=== PATIENT | female | born 1985 | race Caucasian/White ===

== ENCOUNTER 2022-03-24 08:59 | Emergency (ER) | payer OTHER, SELFPAY ==
[2022-03-24] VITALS (16 sets, daily range): BP systolic 127–135; BP diastolic 82–93; PULSE 79–97; RESP 18–20; TEMP 37.4; O2SAT 100; BMI 18.5
[2022-03-24] MEDS: 0.9 % SODIUM CHLORIDE 1000 ml 1,000 ML IV (10:00)
--- NOTE | 2022-03-24 10:29 | ED.GENADULT ---
HPI - General Adult General Chief complaint: Nausea/Vomiting Stated complaint: Pelvic/back pain/vomiting Time Seen by Provider: 03/24/22 10:22 History of Present Illness HPI narrative: This 36-year-old female states that she began to have some dysuria symptoms a couple weeks ago. She states that her urine was more concentrated. She consulted with a provider who thought that it might be related to constipation. About a week ago she had severe pain at the end of voiding. She now reports lower abdominal pain radiating into her back. She has some mild flank pain bilaterally. She feels chilled and states that she does not have a thermometer at home. She does not know if she had any fevers. She arrives here with normal vital signs. Related Data Home Medications Medication Instructions Recorded Confirmed acetaminophen 500 mg tablet 1,000 mg PO Q6H PRN 03/24/22 03/24/22 (Acetaminophen Pain Relief) Previous Rx's Medication Instructions Recorded ketorolac 10 mg tablet 10 mg PO Q8H 5 days #15 tabs 03/24/22 ondansetron 4 mg disintegrating 4 mg PO Q6H #20 tabs 03/24/22 tablet oxycodone 5 mg capsule 5 mg PO Q6H PRN pain #20 caps 03/24/22 Allergies Allergy/AdvReac Type Severity Reaction Status Date / Time No Known Drug Allergies Allergy Verified 03/24/22 12:36 Review of Systems Status of ROS: Reports: 10 or more systems reviewed and unremarkable except as noted in History and below Narrative: Constitutional: No fevers, no weight gain or loss. Eyes: No discharge. No vision changes. HENT: No congestion, no sore throat, no ear pain. Cardiovascular: No chest pain, no palpitations. Respiratory: No shortness of breath, no wheezes, no cough. Gastrointestinal: No diarrhea. Lower abdominal pain radiating through to the back. Nausea. Genitourinary: Painful urination. Musculoskeletal: Normal range of motion. Skin: No rashes, no pruritis. Neurological: No dizziness, weakness, sensory change, speech change. Endo/Heme/Allergies: No bruising or bleeding. No polydipsia. Pysch: no suicidality, no anxiety, no insomnia. All other systems reviewed and are negative. PFSH PFSH Social History Smoking Status: Former smoker Do you use any of these nicotine containing products: None Second hand tobacco smoke exposure: No How often do you have a drink containing alcohol: never AUDIT-C Alcohol total score: 0 Non-prescribed substance use: denies use Exam Narrative: Exam Narrative: Constitutional: Well-developed, well-nourished, no acute distress. HEENT: Normocephalic, atraumatic. Neck: Normal range of motion. Nontender. Supple. Heart: Regular. No murmurs. Normal rate. Intact distal pulses. Lungs: Clear to auscultation. No chest discomfort. No wheezes, rhonchi, or rales. Abdomen: Normal bowel sounds. Lower abdominal pain. No rebound tenderness. No distinct flank pain when percussing over the kidneys. Genitalia: Deferred. Back: No midline tenderness. Normal range of motion. Extremities: Normal range of motion. No injury. Skin: Intact. No rash. Warm. No erythema or pallor. Neurologic: No altered sensation. No weakness. Alert and oriented. Psychiatric: No suicidality. No anxiety or depression. No insomnia. Nursing notes and vitals signs are reviewed. Const: Vital Signs, click to edit/add: Vital Signs - 24 hr 03/24/22 09:20 03/24/22 10:44 03/24/22 09:24 Temperature 99.4 F Pulse Rate 83 Pulse Rate [Right Pulse Oximeter] 84 82 Respiratory Rate 18 20 Blood Pressure Blood Pressure [Ri ght Upper Arm] 135/87 133/91 H Pulse Oximetry 100 100 100 Oxygen Delivery Me od Room Air 03/24/22 10:45 03/24/22 10:46 03/24/22 11:00 Temperature Pulse Rate 92 84 86 Pulse Rate [Right Pulse Oximeter] Respiratory Rate Blood Pressure 133/91 H Blood Pressure [Ri ght Upper Arm] Pulse Oximetry 100 100 100 Oxygen Delivery Me thod 03/24/22 11:01 03/24/22 11:31 03/24/22 11:36 Temperature Pulse Rate 85 93 Pulse Rate [Right Pulse Oximeter] Respiratory Rate Blood Pressure 131/93 H 128/86 Blood Pressure [Ri ght Upper Arm] Pulse Oximetry 100 100 Oxygen Delivery Mn thod 03/24/22 12:00 03/24/22 12:01 03/24/22 12:41 Temperature Pulse Rate 97 90 79 Pulse Rate [Right Pulse Oximeter] Respiratory Rate Blood Pressure 134/87 Blood Pressure [Ri ght Upper Arm] Pulse Oximetry 100 100 100 Oxygen Delivery Me thod 03/24/22 13:01 03/24/22 13:02 03/24/22 13:32 Temperature Pulse Rate 79 86 Pulse Rate [Right Pulse Oximeter] Respiratory Rate Blood Pressure 135/92 H 127/82 Blood Pressure [Ri ght Upper Arm] Pulse Oximetry 100 100 Oxygen Delivery Me thod 03/24/22 13:41 Temperature Pulse Rate 86 Pulse Rate [Right Pulse Oximeter] Respiratory Rate Blood Pressure Blood Pressure [Ri ght Upper Arm] Pulse Oximetry 100 Oxygen Delivery Me thod Course Vital Signs Vital signs: Initial Vital Signs Temperature 99.4 F 03/24/22 09:20 Temperature Source Temporal Artery Scan 03/24/22 09:20 Pulse Rate 84 03/24/22 09:20 Respiratory Rate 18 03/24/22 09:20 Blood Pressure 135/87 03/24/22 09:20 Blood Pressure Mean 103 03/24/22 09:20 Blood Pressure Position Sitting 03/24/22 09:20 Pulse Oximetry 100 03/24/22 09:20 Oxygen Delivery Method 03/24/22 09:20 Vital Signs Temperature 99.4 F 03/24/22 09:20 Pulse Rate 84 03/24/22 09:20 Respiratory Rate 18 03/24/22 09:20 Blood Pressure 135/87 03/24/22 09:20 Pulse Oximetry 100 03/24/22 09:20 Oxygen Delivery Method 03/24/22 09:20 Temperature 99.4 F 03/24/22 09:20 Pulse Rate 86 03/24/22 13:41 Respiratory Rate 20 03/24/22 10:44 Blood Pressure 127/82 03/24/22 13:32 Pulse Oximetry 100 03/24/22 13:41 Oxygen Delivery Method 03/24/22 09:20 Medical Decision Making MDM Narrative Medical decision making narrative: This 36-year-old female comes in reporting severe lower abdominal pain radiating through to her back. She did have a surgery for uterine and bladder prolapse about 6 months ago. She has had a hysterectomy and her tubes were removed along with her right ovary. An IV was established where she received total of 0.5 mg of Dilaudid along with 30 mg of Toradol. This brought great relief of her pain. Her white count returns a bit elevated but urinalysis shows no sign of infection. A CT scan of the abdomen and pelvis was then completed which shows no acute findings to explain her pain. She does have a physiologic cyst in the left adnexa which may be draining and causing some pain for her. If not that as a source of pain her surgery 6 months ago may be involved however there are no concerning findings of acute abdomen on CT scan. At the time of discharge the patient appears safe for outpatient management. The treatment plan is reviewed along with written and verbal return precautions. Reasons to return and the importance of close followup were also reviewed. The patient received prescriptions for Zofran, Toradol, and Percocet. I advised her to follow-up with her primary physician or surgeon or return if worsening symptoms happen. Lab Data Labs: Lab Results 03/24/22 03/24/22 03/24/22 Range/Units 10:00 10:00 11:03 WBC 13.61 H (4.50-11.00) K/uL RBC 4.19 (4.00-5.20) m/uL Hgb 13.3 (12.0-16.0) gm/dL Hct 37.8 (33.0-51.0) % MCV 90 (80-100) fL MCH 32 (26-34) pg MCHC 35 (32-36) gm/dL RDW Coeff of Kwan 12.8 (11.5-15.5) % Plt Count 343 (140-440) K/uL Neut % (Auto) 87.5 H (42.0-72.0) % Lymph % (Auto) 8.4 L (20-44) % [place] % (Auto) 3.8 (0.0-11.0) % Eos % (Auto) 0.0 (0.0-7.0) % Baso % (Auto) 0.2 (0.0-3.0) % Neut # (Auto) 11.90 H (1.7-7.0) K/uL Lymph # (Auto) 1.10 (0.90-2.90) K/uL [place] # (Auto) 0.50 (0.00-0.90) K/UL Eos # (Auto) 0.00 (0.00-0.50) K/uL Baso # (Auto) 0.00 (0.00-0.30) K/uL Sodium 138 (135-149) mmol/L Potassium 3.5 L (3.6-5.1) mmol/L Chloride 103 (96-114) mmol/L Carbon Dioxide 23 (20-32) mmol/L BUN 17 (5-24) mg/dL Creatinine 0.5 (0.5-1.5) mg/dL Estimated Creat Clear 121.26 Estimated GFR 123 ml/min Glucose 130 H (60-115) mg/dL Calcium 9.3 (8.4-10.6) mg/dL Urine Color Yellow (Yellow) Urine Appearance Slightly Cloudy A (Clear) Urine pH 6.5 (5.0-8.5) Ur Specific [place] >= 1.030 (1.000-1.030) Urine Protein Negative (Negative) Urine Glucose (UA) Negative (Negative) Urine Ketones 2+ A (Negative) Urine Blood 1+ A (Negative) Urine Nitrite Negative (Negative) Urine Bilirubin Negative (Negative) Urine Urobilinogen 0.2 (0.2-1.0) Ur Leukocyte Esterase Negative (Negative) Urine RBC 0-2 (0-2) Urine WBC 2-5 (0-5) Ur Squamous Epith Cells Moderate A (None-Few) Urine Bacteria Few A (None) Imaging Data CT scan - abdomen: Radiologist's impression: FINDINGS: Lower chest: Unremarkable. Liver: Mild fatty infiltration along the falciform ligament. Normal in size and attenuation. No suspicious masses. Gallbladder and bile ducts: Unremarkable. No stones or inflammation. No biliary dilatation. Pancreas: Unremarkable. No mass or inflammation. Spleen: Unremarkable. Normal in size. No masses. Adrenal glands: Unremarkable. No nodules. Kidneys: No suspicious masses, stones, or hydronephrosis. Mild contrast excretion into the collecting system. GI tract: Unremarkable. Normal in caliber. No sign of mass or inflammation. Normal appendix. Vasculature: Abdominal aorta is normal in caliber. Mesenteric arteries are patent. Lymph nodes: No lymphadenopathy. Peritoneum/Abdominal Wall: Unremarkable. No sign of mass or infiltration. No free air or significant free fluid. Pelvis: Prior hysterectomy. Likely physiologic cyst in the left adnexa. Surgical clip in the left pelvis. Bladder is unremarkable. Bones: Unremarkable for age. IMPRESSION: No acute intra-abdominal process identified. Discharge Plan Discharge Clinical Impression: Abdominal pain Patient Disposition: Home w/ Parent or Adult Condition: Improved Additional Instructions: Take medication as needed and indicated. Follow up with MD or return if worsening symptoms happen. Prescriptions: New ketorolac 10 mg tablet 10 mg PO Q8H 5 Days Qty: 15 0RF oxycodone 5 mg capsule 5 mg PO Q6H PRN (Reason: pain) Qty: 20 0RF ondansetron 4 mg tablet,disintegrating 4 mg PO Q6H Qty: 20 0RF No Action acetaminophen [Acetaminophen Pain Relief] 500 mg tablet 1,000 mg PO Q6H PRN Follow Up/Referrals: Karol Shepard DO [Primary Care Provider] - Stand Alone Forms: [facility] Info Instructions
[2022-03-24] MEDS: HYDROmorphone 0.5 mg/0.5 ml inj 0.2 MG IVP (10:37)
[2022-03-24] MEDS: ONDANSETRON 2 MG/ML inj 4 MG IVP (10:37)
[2022-03-24 10:43] LABS: Basophils Percent Auto 0.2 % (0.0-3.0); Hematocrit 37.8 % (33.0-51.0); Hemoglobin* 13.3 gm/dL (12.0-16.0); Immature Granulocytes Pct Auto 0.1 %; Lymphocytes Percent Auto 8.4 % (20-44); Mean Corpuscular HGB Conc 35 gm/dL (32-36); Mean Corpuscular Hemoglobin 32 pg (26-34); Mean Corpuscular Volume 90 fL (80-100); Monocytes Percent Auto 3.8 % (0.0-11.0); Neutrophils Percent Auto 87.5 % (42.0-72.0); Platelet Count* 343 K/uL (140-440); RDW Coefficient of Variation % 12.8 % (11.5-15.5); Red Blood Count 4.19 m/uL (4.00-5.20); White Blood Count* 13.61 K/uL (4.50-11.00)
[2022-03-24 10:58] LABS: Chloride* 103 mmol/L (96-114); Sodium* 138 mmol/L (135-149)
[2022-03-24 10:59] LABS: Potassium* 3.5 mmol/L (3.6-5.1)
[2022-03-24 11:00] LABS: Slide Review Reflex No
[2022-03-24 11:01] LABS: Creatinine* 0.5 mg/dL (0.5-1.5); Est. Creatinine Clearance* 121.26; Estimated Glomerular Filt Rate 123 ml/min
[2022-03-24 11:02] LABS: Blood Urea Nitrogen* 17 mg/dL (5-24); Calcium* 9.3 mg/dL (8.4-10.6); Carbon Dioxide* 23 mmol/L (20-32); Glucose* 130 mg/dL (60-115)
[2022-03-24 11:18] LABS: Appearance Urine Slightly Cloudy (Clear); Bilirubin Urine Negative (Negative); Blood Urine 1+ (Negative); Color Urine Yellow (Yellow); Glucose Urine Negative (Negative); Ketones Urine 2+ (Negative); Leukocyte Esterase Urine Negative (Negative); Nitrite Urine Negative (Negative); Protein Urine Negative (Negative); Specific Gravity Urine >= 1.030 (1.000-1.030); Urobilinogen Urine 0.2 (0.2-1.0); pH Urine 6.5 (5.0-8.5)
[2022-03-24] MEDS: HYDROmorphone 0.5 mg/0.5 ml inj 0.3 MG IVP (11:36)
[2022-03-24] MEDS: KETOROLAC 30 MG/ML inj IVP (11:36)
[2022-03-24 11:48] LABS: Bacteria Urine Few; RBC Urine 0-2 (0-2); Squamous Epithelial Cell Urine Moderate (None-Few)
--- NOTE | 2022-03-24 12:02 | CRLHL7_ITS ---
For Patients: As a result of the Century Cures Act, medical imaging exams and procedure reports are released immediately into your electronic medical record. You may view this report before your referring provider. If you have questions, please contact your health care provider. INDICATION: Abdominal pain, lower back pain.. TECHNIQUE: CT abdomen and pelvis acquired with 49 cc Isovue 370 IV contrast. COMPARISON: None. FINDINGS: Lower chest: Unremarkable. Liver: Mild fatty infiltration along the falciform ligament. Normal in size and attenuation. No suspicious masses. Gallbladder and bile ducts: Unremarkable. No stones or inflammation. No biliary dilatation. Pancreas: Unremarkable. No mass or inflammation. Spleen: Unremarkable. Normal in size. No masses. Adrenal glands: Unremarkable. No nodules. Kidneys: No suspicious masses, stones, or hydronephrosis. Mild contrast excretion into the collecting system. GI tract: Unremarkable. Normal in caliber. No sign of mass or inflammation. Normal appendix. Vasculature: Abdominal aorta is normal in caliber. Mesenteric arteries are patent. Lymph nodes: No lymphadenopathy. Peritoneum/Abdominal Wall: Unremarkable. No sign of mass or infiltration. No free air or significant free fluid. Pelvis: Prior hysterectomy. Likely physiologic cyst in the left adnexa. Surgical clip in the left pelvis. Bladder is unremarkable. Bones: Unremarkable for age. IMPRESSION: No acute intra-abdominal process identified. Please note that all CT scans at this facility use dose modulation, iterative reconstruction, and/or weight-based dosing when appropriate to reduce radiation dose to as low as reasonably achievable. Dictated by Nemesio Franz MD @ 03/24/2022 1:11:46 PM (Electronically Signed)
--- NOTE | 2022-03-24 12:26 | ED.NURSE ---
Pt to CT
== END 2022-03-24 14:03 | disposition home or self-care (01) ==
PROVIDERS: Emergency Provider Emergency Medicine Emergency Medical Services; PCP Family Medicine
DX: R10.30 Lower abdominal pain, unspecified (principal)
CPT/HCPCS: 36415; 74177; 80048; 81001; 85025; 87086; 96374; 96375; 96376; 99284; J1170; J1885; J2405; J7030; Q9967

== ENCOUNTER 2022-10-16 12:52 | Emergency (ER) | payer OTHER, SELFPAY ==
[2022-10-16 13:15] VITALS: BP 120/73; PULSE 70; RESP 18; TEMP 36.6; O2SAT 100; BMI 18.6
[2022-10-16] MEDS: KETOROLAC 15 MG/ML inj IVP (14:24)
[2022-10-16] MEDS: ONDANSETRON 2 MG/ML inj 4 MG IVP ×2 (14:24→17:33)
[2022-10-16] MEDS: 0.9 % SODIUM CHLORIDE 1000 ml 1,000 ML IV (14:25)
[2022-10-16] MEDS: diphenhydrAMINE 50 MG/ML inj 25 MG IVP (14:25)
[2022-10-16 14:31] LABS: Lactate* 1.7 mmol/L (0.5-1.9)
[2022-10-16 14:32] LABS: Basophils Percent Auto 0.2 % (0.0-3.0); Hematocrit 37.3 % (33.0-51.0); Hemoglobin* 12.6 gm/dL (12.0-16.0); Immature Granulocytes Pct Auto 0.2 %; Mean Corpuscular HGB Conc 34 gm/dL (32-36); Mean Corpuscular Hemoglobin 31 pg (26-34); Mean Corpuscular Volume 91 fL (80-100); Monocytes Percent Auto 2.2 % (0.0-11.0); Neutrophils Percent Auto 91.4 % (42.0-72.0); Platelet Count* 365 K/uL (140-440); RDW Coefficient of Variation % 13.5 % (11.5-15.5); Red Blood Count 4.08 m/uL (4.00-5.20); White Blood Count* 16.18 K/uL (4.50-11.00)
[2022-10-16 14:35] LABS: Slide Review Reflex No
--- NOTE | 2022-10-16 14:37 | ED.GENADULT ---
HPI - General Adult General Date Seen: 10/16/22 Chief complaint: Abdominal Pain Stated complaint: Vomiting green Time Seen by Provider: 10/16/22 13:56 Source: patient Mode of arrival: ambulatory Limitations: no limitations History of Present Illness HPI narrative: Patient is a 37-year-old woman with a long history of chronic intermittent abdominal pain who presents with onset of left lower quadrant pain and vomiting as well as some loose stools which she reports are black, this is common for her. She has had lengthy workups with no cause found. She does have extensive surgical history, she has had a total abdominal hysterectomy with bilateral oophorectomy and reports also partial colectomy and some sort of bladder sling. She denies fever was although she has felt chilled. She denies urinary symptoms. Symptoms started last night and have been persistent, she reports multiple episodes of vomiting at times bilious. Related Data Home Medications Medication Instructions Recorded Confirmed acetaminophen 500 mg tablet 1,000 mg PO Q6H PRN 03/24/22 03/24/22 (Acetaminophen Pain Relief) Previous Rx's Medication Instructions Recorded ketorolac 10 mg tablet 10 mg PO Q8H 5 days #15 tabs 03/24/22 ondansetron 4 mg disintegrating 4 mg PO Q6H #20 tabs 03/24/22 tablet oxycodone 5 mg capsule 5 mg PO Q6H PRN pain #20 caps 03/24/22 Allergies Allergy/AdvReac Type Severity Reaction Status Date / Time No Known Drug Allergies Allergy Verified 03/24/22 12:36 Review of Systems Status of ROS: Reports: 10 or more systems reviewed and unremarkable except as noted in History and below PFSH PFS Social History Smoking Status: Former smoker Do you use any of these nicotine containing products: None Second hand tobacco smoke exposure: No How often do you have a drink containing alcohol: never AUDIT-C Alcohol total score: 0 Non-prescribed substance use: denies use Exam Narrative: Exam Narrative: Vital signs as noted above. In general, an alert, nontoxic, thin woman. Head: Normocephalic, atraumatic. Eyes: Pupils are equal reactive. Extraocular movements are full. Conjunctivae are normal. ENT: Mucous membranes are slightly dry. Neck: Supple without lymphadenopathy. Heart: Regular rate and rhythm. No murmur or rub. Lungs: Clear bilaterally. No increased work of breathing, crackles or wheezes. Abdomen: Soft, nondistended. Diffuse lower abdominal tenderness without rebound guarding or rigidity. Extremities: Well perfused. No edema. No calf tenderness. Pulses intact. Neurologic: Patient is alert and oriented to person and place. Speech is fluent. Face is symmetric. Moves all extremities equally. Affect: Normal. Skin: Warm and dry. Well perfused. Const: Vital Signs, click to edit/add: Vital Signs - 24 hr 10/16/22 13:15 10/16/22 16:15 10/16/22 17:40 Temperature 97.9 F Pulse Rate [Right Pulse Oximeter] 70 66 77 Respiratory Rate 18 16 Blood Pressure [Ri ght Upper Arm] 120/73 107/72 118/77 Pulse Oximetry 100 100 100 Oxygen Delivery Me thod Room Air Room Air Room Air Documenting provider has reviewed patient's vital signs: yes Course Course ED Course: Patient had an IV placed here was given initially Toradol, at her request IV Benadryl and Zofran as well as a L of normal saline. I reviewed her records, she does have a fairly long history of chronic intermittent abdominal pain without clear cause. Her labs [place] [id number] and therefore I elected to do a CT scan given her extensive history of abdominal surgeries. In the meantime, she requested further pain medication. After review of her CT scan, she had [address] scan showed the following:IMPRESSION: 1. Mild diffuse small bowel wall thickening suggesting a nonspecific enteritis. Mild wall thickening of the gastric antrum is likely inflammatory. No evidence of obstruction. 2. Indeterminate enhancing lesion in the hepatic dome which is not identified on prior exams. This could be further evaluated with nonemergent contrast enhanced MRI. 3. Tiny foci of gas in the bladder could be related to recent instrumentation or gas-forming infectious process. No significant bladder wall thickening. Correlate urinalysis. 4. Bilobed left adnexal cyst. She did provide a UA this is essentially negative, 0-2 reds, 2-5 white some will go ahead and send that for culture. Remainder of her labs were pretty unremarkable. Electrolytes were normal aside from potassium of 3.4. Lactate was 1.7. LFTs were normal. CRP was less than 0.5 and lipase was 38. Reviewed with her that CT scan shows likely a gastroenteritis, would expect her to improve over the next day or 2. She says usually on day 2 she does better. She agrees with the plan of sending her home with some Zofran, clear liquids today advance as able tomorrow. Primary care follow-up if not improving in the expected time frame. For worsening symptoms such as continued vomiting, high fevers, severe pain, return to the emergency department. Vital Signs Vital signs: Initial Vital Signs Temperature 97.9 F 10/16/22 13:15 Temperature Source Temporal Artery Scan 10/16/22 13:15 Pulse Rate 70 10/16/22 13:15 Respiratory Rate 18 10/16/22 13:15 Blood Pressure 120/73 10/16/22 13:15 Blood Pressure Mean 88 10/16/22 13:15 Blood Pressure Position Sitting 10/16/22 13:15 Pulse Oximetry 100 10/16/22 13:15 Oxygen Delivery Method Room Air 10/16/22 13:15 Vital Signs Temperature 97.9 F 10/16/22 13:15 Pulse Rate 70 10/16/22 13:15 Respiratory Rate 18 10/16/22 13:15 Blood Pressure 120/73 10/16/22 13:15 Pulse Oximetry 100 10/16/22 13:15 Oxygen Delivery Method Room Air 10/16/22 13:15 Temperature 97.9 F 10/16/22 13:15 Pulse Rate 77 10/16/22 17:40 Respiratory Rate 16 10/16/22 17:40 Blood Pressure 118/77 10/16/22 17:40 Pulse Oximetry 100 10/16/22 17:40 Oxygen Delivery Method Room Air 10/16/22 17:40 Medical Decision Making Lab Data Labs: Lab Results 10/16/22 10/16/22 Range/Units 14:17 17:20 WBC 16.18 H (4.50-11.00) K/uL RBC 4.08 (4.00-5.20) m/uL Hgb 12.6 (12.0-16.0) gm/dL Hct 37.3 (33.0-51.0) % MCV 91 (80-100) fL MCH 31 (26-34) pg MCHC 34 (32-36) gm/dL RDW Coeff of Kwan 13.5 (11.5-15.5) % Plt Count 365 (140-440) K/uL Neut % (Auto) 91.4 H (42.0-72.0) % Lymph % (Auto) 6.0 L (20-44) % [place] % (Auto) 2.2 (0.0-11.0) % Eos % (Auto) 0.0 (0.0-7.0) % Baso % (Auto) 0.2 (0.0-3.0) % Neut # (Auto) 14.80 H (1.7-7.0) K/uL Lymph # (Auto) 1.00 (0.90-2.90) K/uL [place] # (Auto) 0.40 (0.00-0.90) K/UL Eos # (Auto) 0.00 (0.00-0.50) K/uL Baso # (Auto) 0.00 (0.00-0.30) K/uL Abs Immat Gran (auto) 0.00 (0.00-0.30) K/uL Imm/Tot Granulo (auto) 0.2 % Sodium 141 (135-149) mmol/L Potassium 3.4 L (3.6-5.1) mmol/L Chloride 107 (96-114) mmol/L Carbon Dioxide 23 (20-32) mmol/L Anion Gap 11 (7-15) mEq/L BUN 18 (5-24) mg/dL Creatinine 0.6 (0.5-1.5) mg/dL Estimated Creat Clear 100.96 Estimated GFR 117 ml/min Glucose 137 H (60-115) mg/dL Lactate 1.7 (0.5-1.9) mmol/L Calcium 9.9 (8.4-10.6) mg/dL Total Bilirubin 0.6 (0.1-1.5) mg/dL Direct Bilirubin 0.1 (0.0-0.5) mg/dL AST 21 (12-35) U/L ALT 18 (4-35) U/L Alkaline Phosphatase 51 (40-150) U/L C-Reactive Protein < 0.5 L (0.5-1.0) mg/dL Total Protein 7.3 (6.0-8.3) g/dL Albumin 4.5 (3.3-5.0) g/dL Lipase 38 (23-300) U/L Urine Color Yellow (Yellow) Urine Appearance Slightly Cloudy A (Clear) Urine pH 7.5 (5.0-8.5) Ur Specific [place] 1.015 (1.000-1.030) Urine Protein Negative (Negative) Urine Glucose (UA) Negative (Negative) Urine Ketones 2+ A (Negative) Urine Blood Negative (Negative) Urine Nitrite Negative (Negative) Urine Bilirubin Negative (Negative) Urine Urobilinogen 0.2 (0.2-1.0) Ur Leukocyte Esterase Negative (Negative) Urine RBC 0-2 (0-2) Urine WBC 2-5 (0-5) Ur Squamous Epith Cells Few (None-Few) Urine Bacteria None (None) Discharge Plan Discharge Clinical Impression: Gastroenteritis Patient Disposition: Home, Self-Care Condition: Improved Instructions: Gastroenteritis (DC) Additional Instructions: Zofran as needed for nausea and vomiting. Clear liquids today, advance as able. Return for high fevers, persistent vomiting, or other worsening. Follow up with primary care if not improving over the next couple of days. Prescriptions: No Action acetaminophen [Acetaminophen Pain Relief] 500 mg tablet 1,000 mg PO Q6H PRN ketorolac 10 mg tablet 10 mg PO Q8H 5 Days Qty: 15 0RF oxycodone 5 mg capsule 5 mg PO Q6H PRN (Reason: pain) Qty: 20 0RF ondansetron 4 mg tablet,disintegrating 4 mg PO Q6H Qty: 20 0RF Follow Up/Referrals: Karol Shepard DO [Primary Care Provider] - Stand Alone Forms: [facility] Info Instructions
--- NOTE | 2022-10-16 14:44 | CRLHL7_ITS ---
For Patients: As a result of the Century Cures Act, medical imaging exams and procedure reports are released immediately into your electronic medical record. You may view this report before your referring provider. If you have questions, please contact your health care provider. INDICATION: Abdominal pain, bilious vomiting. History of hysterectomy, oophorectomy, bladder sling. TECHNIQUE: CT of the abdomen and pelvis with 55 cc Isovue 370 IV contrast. Coronal and sagittal reconstructions. COMPARISON: CT of the abdomen and pelvis 03/24/2022. FINDINGS: There is a 2.4 cm enhancing lesion in the right hepatic dome which is not identified on prior exams (series 2, image 19). This may be more conspicuous due to earlier phase of contrast on the current exam. The gallbladder, spleen, pancreas, and adrenal glands are negative. No biliary dilation. Portal veins are patent. Symmetric enhancement of the kidneys. No hydronephrosis or ureteral dilation. No obstructing urinary calculi identified. No bladder wall thickening. Few tiny foci of gas in the bladder. Hysterectomy. There is a 4.0 cm bilobed cyst or two adjacent cysts in the left adnexa (series 2, image 111). Surgical clip left pelvis. Mild wall thickening of the gastric antrum is likely inflammatory. No small bowel dilation. There appears to be mild diffuse small bowel wall thickening suggesting a nonspecific enteritis. The colon is entirely decompressed. Negative appendix. No intraperitoneal free air or fluid. No lymphadenopathy. The bones are unremarkable. The lung bases are clear. IMPRESSION: 1. Mild diffuse small bowel wall thickening suggesting a nonspecific enteritis. Mild wall thickening of the gastric antrum is likely inflammatory. No evidence of obstruction. 2. Indeterminate enhancing lesion in the hepatic dome which is not identified on prior exams. This could be further evaluated with nonemergent contrast enhanced MRI. 3. Tiny foci of gas in the bladder could be related to recent instrumentation or gas-forming infectious process. No significant bladder wall thickening. Correlate urinalysis. 4. Bilobed left adnexal cyst. Please note that all CT scans at this facility use dose modulation, iterative reconstruction, and/or weight-based dosing when appropriate to reduce radiation dose to as low as reasonably achievable. Dictated by Shwetha Jarrett MD @ 10/16/2022 5:02:12 PM (Electronically Signed)
[2022-10-16 14:48] LABS: Albumin* 4.5 g/dL (3.3-5.0); Chloride* 107 mmol/L (96-114)
[2022-10-16 14:49] LABS: Potassium* 3.4 mmol/L (3.6-5.1); Sodium* 141 mmol/L (135-149)
[2022-10-16 14:51] LABS: Alanine Aminotransferase* 18 U/L (4-35); Alkaline Phosphatase* 51 U/L (40-150); Aspartate Amino Transferase* 21 U/L (12-35); Bilirubin Direct* 0.1 mg/dL (0.0-0.5); Bilirubin Total* 0.6 mg/dL (0.1-1.5); Creatinine* 0.6 mg/dL (0.5-1.5); Est. Creatinine Clearance* 100.96; Estimated Glomerular Filt Rate 117 ml/min; Lipase* 38 U/L (23-300); Total Protein* 7.3 g/dL (6.0-8.3)
[2022-10-16 14:52] LABS: Anion Gap 11 mEq/L (7-15); Blood Urea Nitrogen* 18 mg/dL (5-24); Carbon Dioxide* 23 mmol/L (20-32)
[2022-10-16 14:53] LABS: Calcium* 9.9 mg/dL (8.4-10.6); Glucose* 137 mg/dL (60-115)
[2022-10-16 14:58] LABS: C Reactive Protein* < 0.5 mg/dL (0.5-1.0)
[2022-10-16 16:15] VITALS: BP 107/72; PULSE 66; O2SAT 100
[2022-10-16 17:31] LABS: Appearance Urine Slightly Cloudy (Clear); Bilirubin Urine Negative (Negative); Blood Urine Negative (Negative); Color Urine Yellow (Yellow); Glucose Urine Negative (Negative); Ketones Urine 2+ (Negative); Leukocyte Esterase Urine Negative (Negative); Nitrite Urine Negative (Negative); Protein Urine Negative (Negative); Specific Gravity Urine 1.015 (1.000-1.030); Urobilinogen Urine 0.2 (0.2-1.0); pH Urine 7.5 (5.0-8.5)
[2022-10-16] MEDS: MORPHINE 4 MG/ML INJ IVP (17:33)
[2022-10-16 17:40] VITALS: BP 118/77; PULSE 77; RESP 16; O2SAT 100
[2022-10-16 17:40] LABS: RBC Urine 0-2 (0-2); Squamous Epithelial Cell Urine Few (None-Few)
== END 2022-10-16 18:06 | disposition home or self-care (01) ==
PROVIDERS: Emergency Provider Emergency Medicine; PCP Family Medicine
DX: K52.9 Noninfective gastroenteritis and colitis, unspecified (principal)
CPT/HCPCS: 36415; 74177; 80048; 80076; 81001; 83605; 83690; 85025; 86140; 96374; 96375; 99284; J1200; J1885; J2270; J2405; J7030; Q9967